=== PATIENT | male | born 1980 | race Caucasian/White ===

== ENCOUNTER 2021-10-16 07:31 | Emergency (ER) | payer BC ==
[~2021-10-16] VITALS: Ht 188 cm; Wt 91.4 kg
[2021-10-16 08:53] LABS: ALBUMIN 4.2 g/dL (3.5-5.0); POTASSIUM 4.8 mmol/L (3.5-5.1)
[2021-10-16 08:55] LABS: CALCIUM 9.2 mg/dL (8.3-10.5)
[2021-10-16 08:56] LABS: TOTAL PROTEIN 7.4 g/dL (6.4-8.3)
[2021-10-16 08:58] LABS: BASO # 0.01 K/mm3 (0.02-0.10); EOS # 0.13 K/mm3 (0.04-0.40); EOS % 3.9 % (0.0-4.0); HEMOGLOBIN 14.1 g/dL (13.5-18.0); LYMPH# 0.87 K/mm3 (1.50-4.00); MEAN CELL VOLUME 94 fl (78-100); MEAN CORPUSCULAR HEMOGLOBIN 32 pg (27-31); MEAN CORPUSCULAR HGB CONC 34 g/dL (33-37); MEAN PLATELET VOLUME 9.9 fl (7.4-10.4); MONO # 0.34 K/mm3 (0.20-0.80); NEU # 1.94 K/mm3 (1.40-6.50); PLATELET COUNT 159 K/mm3 (130-400); RED BLOOD COUNT 4.45 M/mm3 (4.20-5.60); RED CELL DISTRIBUTION WIDTH 11.9 % (11.5-14.5); TOTAL BILIRUBIN 0.9 mg/dL (0.2-1.2); WHITE BLOOD COUNT 3.3 K/mm3 (4.8-10.8)
[2021-10-16 09:01] LABS: D-DIMER 0.34 mg/L FEU (0.15-0.50)
[2021-10-16 11:56] VITALS: BP 135/95
== END 2021-10-16 12:06 | disposition home or self-care (01) ==
LOC: ED 07:31
PROVIDERS: Family Medicine
DX: R07.89 Other chest pain (principal); Z86.711 Personal history of pulmonary embolism; Z70.1 Counseling related to patient's sexual behavior and orientation
CPT/HCPCS: J1885

== ENCOUNTER → 2021-11-26 | Outpatient (CLI) | payer BC ==
[2021-11-26 11:05] LABS: BASO # 0.03 K/mm3 (0.02-0.10); EOS # 0.07 K/mm3 (0.04-0.40); EOS % 1.5 % (0.0-4.0); HEMATOCRIT 42.7 % (42.0-52.0); HEMOGLOBIN 14.1 g/dL (13.5-18.0); LYMPH# 0.89 K/mm3 (1.50-4.00); MEAN CELL VOLUME 97 fl (78-100); MEAN CORPUSCULAR HEMOGLOBIN 32 pg (27-31); MEAN CORPUSCULAR HGB CONC 33 g/dL (33-37); MEAN PLATELET VOLUME 9.7 fl (7.4-10.4); MONO # 0.36 K/mm3 (0.20-0.80); NEU # 3.46 K/mm3 (1.40-6.50); PLATELET COUNT 136 K/mm3 (130-400); RED CELL DISTRIBUTION WIDTH 12.2 % (11.5-14.5); WHITE BLOOD COUNT 4.8 K/mm3 (4.8-10.8)
[2021-11-26 11:07] LABS: ALBUMIN 4.5 g/dL (3.5-5.0); POTASSIUM 3.8 mmol/L (3.5-5.1)
[2021-11-26 11:09] LABS: CALCIUM 9.5 mg/dL (8.3-10.5)
[2021-11-26 11:10] LABS: TOTAL PROTEIN 7.5 g/dL (6.4-8.3)
[2021-11-26 11:12] LABS: TOTAL BILIRUBIN 1.5 mg/dL (0.2-1.2)
[2021-11-26 11:18] LABS: URINE APPEARANCE HAZY; URINE BILIRUBIN NEGATIVE (NEGATIVE); URINE BLOOD TRACE (NEGATIVE); URINE COLOR DK YELLOW; URINE GLUCOSE NEGATIVE (NEGATIVE); URINE KETONE NEGATIVE (NEGATIVE); URINE LEUKOCYTE ESTERASE TRACE (NEGATIVE); URINE NITRATE NEGATIVE (NEGATIVE); URINE PROTEIN(semi-quant) TRACE (NEGATIVE); URINE UROBILINOGEN NORMAL (NORMAL)
[2021-11-26 11:19] LABS: URINE MUCUS PRESENT (NOT PRESENT)
== END ==
LOC: LAB 09:22
PROVIDERS: Nurse Practitioner Family
DX: M54.50 Low back pain, unspecified (principal); N50.811 Right testicular pain; R11.0 Nausea

== ENCOUNTER → 2021-12-02 | Outpatient (CLI) | payer BC ==
[2021-12-02 11:54] LABS: ALBUMIN 4.5 g/dL (3.5-5.0)
[2021-12-02 11:55] LABS: CALCIUM 9.7 mg/dL (8.3-10.5)
[2021-12-02 11:56] LABS: BASO # 0.03 K/mm3 (0.02-0.10); EOS # 0.11 K/mm3 (0.04-0.40); EOS % 4.2 % (0.0-4.0); HEMATOCRIT 39.9 % (42.0-52.0); HEMOGLOBIN 13.8 g/dL (13.5-18.0); MEAN CELL VOLUME 93 fl (78-100); MEAN CORPUSCULAR HEMOGLOBIN 32 pg (27-31); MEAN CORPUSCULAR HGB CONC 35 g/dL (33-37); MEAN PLATELET VOLUME 9.4 fl (7.4-10.4); MONO # 0.29 K/mm3 (0.20-0.80); NEU # 1.31 K/mm3 (1.40-6.50); PLATELET COUNT 172 K/mm3 (130-400); RED BLOOD COUNT 4.29 M/mm3 (4.20-5.60); WHITE BLOOD COUNT 2.7 K/mm3 (4.8-10.8)
[2021-12-02 11:57] LABS: TOTAL PROTEIN 7.7 g/dL (6.4-8.3)
[2021-12-02 11:58] LABS: TOTAL BILIRUBIN 0.5 mg/dL (0.2-1.2)
[2021-12-02 12:10] LABS: PROTHROMBIN TIME 11.7 SECONDS (9.0-12.0)
== END ==
LOC: LAB 11:21
PROVIDERS: Internal Medicine
DX: D61.818 Other pancytopenia (principal); R89.0 Abnormal level of enzymes in specimens from other organs, systems and tissues; Z86.711 Personal history of pulmonary embolism

== ENCOUNTER → 2021-12-04 | Outpatient (CLI) | payer BC ==
[2021-12-04 11:05] LABS: PROTHROMBIN TIME 13.2 SECONDS (9.0-12.0)
== END ==
LOC: LAB 10:28
PROVIDERS: Internal Medicine
DX: D61.818 Other pancytopenia (principal); R89.0 Abnormal level of enzymes in specimens from other organs, systems and tissues; Z86.711 Personal history of pulmonary embolism

== ENCOUNTER → 2021-12-06 | Outpatient (CLI) | payer BC ==
[2021-12-06 15:30] LABS: PROTHROMBIN TIME 12.6 SECONDS (9.0-12.0)
== END ==
LOC: LAB 15:00
PROVIDERS: Internal Medicine
DX: D61.818 Other pancytopenia (principal); R89.0 Abnormal level of enzymes in specimens from other organs, systems and tissues; Z86.711 Personal history of pulmonary embolism

== ENCOUNTER → 2021-12-09 | Outpatient (CLI) | payer BC | LOC: LAB 14:31 | PROVIDERS: Internal Medicine | DX: D61.818 Other pancytopenia (principal); R89.0 Abnormal level of enzymes in specimens from other organs, systems and tissues; Z86.711 Personal history of pulmonary embolism ==

== ENCOUNTER → 2021-12-12 | Outpatient (CLI) | payer BC ==
[2021-12-12 15:26] LABS: PROTHROMBIN TIME 18.9 SECONDS (9.0-12.0)
== END ==
LOC: LAB 14:36
PROVIDERS: Internal Medicine
DX: D61.818 Other pancytopenia (principal); R89.0 Abnormal level of enzymes in specimens from other organs, systems and tissues; Z86.711 Personal history of pulmonary embolism

== ENCOUNTER → 2021-12-17 | Outpatient (CLI) | payer BC ==
[2021-12-17 11:39] LABS: PROTHROMBIN TIME 21.3 SECONDS (9.0-12.0)
== END ==
LOC: LAB 11:10
PROVIDERS: Internal Medicine
DX: D61.818 Other pancytopenia (principal); R89.0 Abnormal level of enzymes in specimens from other organs, systems and tissues; Z86.711 Personal history of pulmonary embolism

== ENCOUNTER → 2021-12-26 | Outpatient (CLI) | payer BC ==
[2021-12-26 16:24] LABS: PROTHROMBIN TIME 14.1 SECONDS (9.0-12.0)
[2021-12-26 17:36] LABS: BASO # 0.03 K/mm3 (0.02-0.10); EOS # 0.08 K/mm3 (0.04-0.40); EOS % 1.4 % (0.0-4.0); HEMATOCRIT 45.2 % (42.0-52.0); HEMOGLOBIN 15.2 g/dL (13.5-18.0); LYMPH# 0.86 K/mm3 (1.50-4.00); MEAN CELL VOLUME 92 fl (78-100); MEAN CORPUSCULAR HEMOGLOBIN 31 pg (27-31); MEAN CORPUSCULAR HGB CONC 34 g/dL (33-37); MONO # 0.41 K/mm3 (0.20-0.80); NEU # 4.27 K/mm3 (1.40-6.50); PLATELET COUNT 152 K/mm3 (130-400); RED BLOOD COUNT 4.89 M/mm3 (4.20-5.60); RED CELL DISTRIBUTION WIDTH 12.1 % (11.5-14.5); WHITE BLOOD COUNT 5.7 K/mm3 (4.8-10.8)
[2021-12-26 17:52] LABS: ALBUMIN 4.6 g/dL (3.5-5.0); POTASSIUM 4.4 mmol/L (3.5-5.1); SODIUM 141 mmol/L (136-145)
[2021-12-26 17:53] LABS: CALCIUM 9.6 mg/dL (8.3-10.5)
[2021-12-26 17:54] LABS: GLUCOSE 94 mg/dL (75-110)
[2021-12-26 17:55] LABS: TOTAL PROTEIN 7.7 g/dL (6.4-8.3)
[2021-12-26 17:56] LABS: CARBON DIOXIDE 22 mmol/L (22-29); TOTAL BILIRUBIN 0.5 mg/dL (0.2-1.2)
[2021-12-26 17:57] LABS: D-DIMER 0.27 mg/L FEU (0.15-0.50)
[2021-12-26 18:00] LABS: AST-SGOT 50 U/L (5-34)
[2021-12-26 18:01] LABS: ALT/SGPT 49 U/L (0-55)
[2021-12-26 18:09] LABS: TROPONIN-I < 0.030 ng/mL (<0.030)
== END ==
LOC: LAB 16:01 → AMSURD 16:01
PROVIDERS: Internal Medicine
DX: D61.818 Other pancytopenia (principal); R89.0 Abnormal level of enzymes in specimens from other organs, systems and tissues; Z86.711 Personal history of pulmonary embolism

== ENCOUNTER → 2022-01-15 | Outpatient (CLI) | payer BC | LOC: RAD 10:57 | DX: C62.91 Malignant neoplasm of right testis, unspecified whether descended or undescended (principal); M79.652 Pain in left thigh; N50.89 Other specified disorders of the male genital organs; Z90.79 Acquired absence of other genital organ(s) ==

== ENCOUNTER 2022-03-17 23:34 | Emergency (ER) | payer BC ==
[~2022-03-17] VITALS: Ht 188 cm; Wt 90.9 kg
[2022-03-17] MEDS ORDERED: ZESTRIL10 M1 PO (23:44)
[2022-03-17] MEDS ORDERED: ULTRAM50 M1 PO (23:45)
[2022-03-18 00:42] LABS: BASO # 0.02 K/mm3 (0.02-0.10); EOS # 0.11 K/mm3 (0.04-0.40); EOS % 2.8 % (0.0-4.0); HEMATOCRIT 40.1 % (42.0-52.0); HEMOGLOBIN 13.4 g/dL (13.5-18.0); LYMPH# 1.13 K/mm3 (1.50-4.00); MEAN CELL VOLUME 94 fl (78-100); MEAN CORPUSCULAR HEMOGLOBIN 32 pg (27-31); MEAN CORPUSCULAR HGB CONC 33 g/dL (33-37); MEAN PLATELET VOLUME 9.2 fl (7.4-10.4); MONO # 0.32 K/mm3 (0.20-0.80); NEU # 2.27 K/mm3 (1.40-6.50); PLATELET COUNT 136 K/mm3 (130-400); RED BLOOD COUNT 4.25 M/mm3 (4.20-5.60); RED CELL DISTRIBUTION WIDTH 13.1 % (11.5-14.5); WHITE BLOOD COUNT 3.9 K/mm3 (4.8-10.8)
[2022-03-18 00:55] LABS: ALBUMIN 4.3 g/dL (3.5-5.0); POTASSIUM 4.2 mmol/L (3.5-5.1); SODIUM 138 mmol/L (136-145)
[2022-03-18 00:56] LABS: CALCIUM 9.3 mg/dL (8.3-10.5)
[2022-03-18 00:57] LABS: GLUCOSE 99 mg/dL (75-110)
[2022-03-18 00:58] LABS: TOTAL PROTEIN 7.1 g/dL (6.4-8.3)
[2022-03-18 00:59] LABS: CARBON DIOXIDE 25 mmol/L (22-29); TOTAL BILIRUBIN 0.7 mg/dL (0.2-1.2)
[2022-03-18 01:03] LABS: AST-SGOT 38 U/L (5-34)
[2022-03-18 01:04] LABS: ALT/SGPT 24 U/L (0-55)
[2022-03-18 01:36] LABS: TROPONIN-I < 0.030 ng/mL (<0.030)
[2022-03-18 02:33] LABS: PARTIAL THROMBOPLASTIN TIME 23.3 SECONDS (21.0-32.0); PROTHROMBIN TIME 10.4 SECONDS (9.0-12.0)
[2022-03-18 02:34] LABS: D-DIMER 0.57 mg/L FEU (0.15-0.50)
[2022-03-18 03:52] LABS: URINE WBC 0 /hpf (0-3)
[2022-03-18 04:14] LABS: URINE APPEARANCE CLEAR; URINE COLOR YELLOW
[2022-03-18 04:15] LABS: URINE GLUCOSE NEGATIVE (NEGATIVE); URINE KETONE NEGATIVE (NEGATIVE); URINE PROTEIN(semi-quant) NEGATIVE (NEGATIVE)
[2022-03-18 04:16] LABS: URINE BILIRUBIN NEGATIVE (NEGATIVE); URINE BLOOD NEGATIVE (NEGATIVE); URINE LEUKOCYTE ESTERASE NEGATIVE (NEGATIVE); URINE NITRATE NEGATIVE (NEGATIVE); URINE UROBILINOGEN NORMAL (NORMAL)
[2022-03-18 06:35] VITALS: BP 130/92
== END 2022-03-18 06:35 | disposition home or self-care (01) ==
LOC: ED 23:34
PROVIDERS: Nurse Practitioner
DX: I10 Essential (primary) hypertension (principal); F41.9 Anxiety disorder, unspecified; R74.01 Elevation of levels of liver transaminase levels; R79.1 Abnormal coagulation profile; D72.819 Decreased white blood cell count, unspecified; Z28.310 Unvaccinated for COVID-19
CPT/HCPCS: Q9967

== ENCOUNTER → 2022-10-24 | Outpatient (CLI) | payer BC ==
[~2022-10-24] MED LIST: ULTRAM50 M1 PO; ZESTRIL10 M1 PO
[2022-10-24 09:31] LABS: ALBUMIN 4.7 g/dL (3.5-5.0); POTASSIUM 4.3 mmol/L (3.5-5.1)
[2022-10-24 09:32] LABS: CALCIUM 9.9 mg/dL (8.3-10.5)
[2022-10-24 09:34] LABS: TOTAL PROTEIN 7.4 g/dL (6.4-8.3)
[2022-10-24 09:39] LABS: URINE APPEARANCE CLEAR; URINE BILIRUBIN NEGATIVE (NEGATIVE); URINE BLOOD NEGATIVE (NEGATIVE); URINE COLOR YELLOW; URINE GLUCOSE NEGATIVE (NEGATIVE); URINE KETONE NEGATIVE (NEGATIVE); URINE LEUKOCYTE ESTERASE NEGATIVE (NEGATIVE); URINE NITRATE NEGATIVE (NEGATIVE); URINE PROTEIN(semi-quant) TRACE (NEGATIVE); URINE UROBILINOGEN NORMAL (NORMAL); URINE WBC 0-1 /hpf (0-3)
== END ==
LOC: RAD 09:10
PROVIDERS: Family Medicine
DX: R10.11 Right upper quadrant pain (principal); M54.6 Pain in thoracic spine; Z87.442 Personal history of urinary calculi